=== PATIENT | female | born 1935 | race Caucasian/White ===

== ENCOUNTER 2021-11-10 18:51 | Inpatient (IN) ==
[2021-11-10] MEDS ORDERED: SODIUM CHLORIDE 0.9% 1000ML 500 ML IV ONE (19:01)
--- NOTE | 2021-11-10 19:08 | Emergency Department Note ---
History of Present Illness General Chief complaint: Fall Time Seen by Provider: 11/10/21 18:58 Source: patient, family (Daughter who is at the bedside) and EMS Mode of arrival: EMS Limitations: no limitations History of Present Illness This patient is a 86-year-old female with history of diabetes and dementia, comes in after falling. She was brought in the ER at 7:00 from [facility]. Family last saw her around noon. She was taken the garbage out she says she tripped she did hit her head. she has some mild neck pain. she was complained of back pain when they moved her earlier but denies any now. No chest pain or shortness of breath or shortness of breath. She has a history of diabetes. She has not had any recent illness. She does people looking in on her during the day but she is at by herself at night. She also fell over the weekend and has some history of some parkinsonian type symptoms as well Home Medications Medication Instructions Recorded Confirmed Type glipizide 5 mg tablet 5 mg PO DAILY 06/01/19 11/10/21 History acetaminophen 500 mg tablet 500 - 1,000 mg PO Q8H PRN 11/10/21 11/10/21 History (Tylenol Extra Strength) amlodipine 2.5 mg tablet 2.5 mg PO DAILY 11/10/21 11/10/21 History cranberry 500 mg capsule 500 mg PO BID 11/10/21 11/10/21 History cyanocobalamin (vitamin B-12) 1,000 mcg SUBLINGUAL DIRECTED 11/10/21 11/10/21 History 1,000 mcg sublingual tablet donepezil 10 mg tablet 10 mg PO HS 11/10/21 11/10/21 History enalapril maleate 20 mg tablet 20 mg PO DAILY 11/10/21 11/10/21 History memantine 10 mg tablet 10 mg PO BID 11/10/21 11/10/21 History metformin 1,000 mg tablet 500 mg PO BID 11/10/21 11/10/21 History Allergies Allergy/AdvReac Type Severity Reaction Status Date / Time Penicillins Allergy Intermediate Hives Verified 11/10/21 19:18 Sulfa (Sulfonamide Allergy Intermediate Hives Verified 11/10/21 19:18 Antibiotics) oxycodone AdvReac Intermediate HALLUCINATI Verified 11/10/21 19:18 ONS Past Med/Surg History Medical History (Updated 11/12/21 @ 12:02 by Neville Schaefer MD) Diabetes Memory loss Surgical History H/O abdominal hysterectomy History of cholecystectomy Family History Other Diabetes Social History Smoking Status: Never smoker Hx Alcohol Use: No Hx Substance Use: No Preferred Language: Iraqi Communication Ability: Effective 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 Beliefs That Will Affect Care: None marital status: / Current Living Situation: Alone Current Living Situation Comment: caregiver comes to home Feels Safe at Home: Yes Safety Concerns: Feels Safe At This Time Assistive Devices: Walker Review of Systems A total of 10 systems reviewed and were otherwise negative Physical Exam Vital Signs Vital Signs - 24 hr 11/10/21 19:01 11/10/21 19:15 11/10/21 19:30 Temperature 37.3 C Temperature Source Rectal Pulse Rate 84 82 81 Pulse Rate from SpO2 Sensor Respiratory Rate 18 24 21 Respiratory Effort / Characteristics Non-Labored Blood Pressure 167/81 H Blood Pressure Mean 109 Blood Pressure Position Lying Pulse Oximetry 96 98 96 Oxygen Delivery Method Room Air Room Air Sepsis Recent Fever Within 48 Hours No Sepsis New/Unexplained Change in Mental Status No Sepsis Action Taken by Nursing No Action Required 11/10/21 19:31 11/10/21 19:45 11/10/21 19:54 Temperature Temperature Source Pulse Rate Pulse Rate from SpO2 Sensor 83 Respiratory Rate 20 Respiratory Effort / Characteristics Non-Labored Blood Pressure 175/60 H Blood Pressure Mean 98 Blood Pressure Position Pulse Oximetry 96 97 Oxygen Delivery Method Sepsis Recent Fever Within 48 Hours Sepsis New/Unexplained Change in Mental Status Sepsis Action Taken by Nursing 11/10/21 20:00 11/10/21 20:01 11/10/21 20:10 Temperature Temperature Source Pulse Rate Pulse Rate from SpO2 Sensor 80 Respiratory Rate 22 23 Respiratory Effort / Characteristics Non-Labored Blood Pressure 168/73 H Blood Pressure Mean 104 Blood Pressure Position Pulse Oximetry 96 Oxygen Delivery Method Room Air Sepsis Recent Fever Within 48 Hours Sepsis New/Unexplained Change in Mental Status Sepsis Action Taken by Nursing 11/10/21 20:15 Temperature Temperature Source Pulse Rate 85 Pulse Rate from SpO2 Sensor 85 Respiratory Rate 18 Respiratory Effort / Characteristics Blood Pressure Blood Pressure Mean Blood Pressure Position Pulse Oximetry 96 Oxygen Delivery Method Sepsis Recent Fever Within 48 Hours Sepsis New/Unexplained Change in Mental Status Sepsis Action Taken by Nursing General: Well developed well nourished female who answers questions appropriately and is alert and oriented x3 and appears in no acute distress, breathing comfortably on room air. Normal speech HEENT: Normal cephalic atraumatic exception of some swelling on the posterior aspect on the right. pupils are equal round and reactive to light. Extraocular movements are intact. Oropharynx is pink with moist mucous membranes. No swelling of the mouth lips or tongue. Neck: Supple with a midline trachea. No meningeal signs or stiffness, no JVD or bruits. No Stridor. Chest: Clear to auscultation bilaterally. No wheezes or rhonchi. No increased work of breathing. Heart: Regular rate and rhythm without murmurs or gallops. Abdomen: Soft nontender, nondistended without rebound guarding or rigidity. Extremities: No cyanosis clubbing or edema. No calf tenderness or assymetry Spine/Back. Non tender to palpation. No CVA tenderness Skin: Good turgor without rashes. Neurologic exam: Cranial nerves two through 12 are intact. Motor and sensation are intact and symmetrical throughout. Course Administered Medications Acetaminophen (Acetaminophen 325 Mg Tab) 650 mg PO Q4H PRN PRN Reason: pain/fever Stop: 12/11/21 02:23 Last Admin: 11/11/21 23:10 Dose: 650 mg Documented by: [id number] Amlodipine Besylate (Amlodipine Besylate 5 Mg Tab) 2.5 mg PO DAILY [facility] Stop: 12/11/21 08:59 Last Admin: 11/12/21 08:57 Dose: 2.5 mg Documented by: [id number] Admin: 11/11/21 08:22 Dose: 2.5 mg Documented by: [id number] Donepezil HCl (Donepezil Hcl 10 Mg Tab) 10 mg PO HS [facility] Stop: 12/11/21 20:59 Last Admin: 11/11/21 22:11 Dose: 10 mg Documented by: [id number] Enalapril Maleate (Enalapril Maleate 10 Mg Tab) 20 mg PO DAILY [facility] Stop: 12/11/21 08:59 Last Admin: 11/12/21 08:57 Dose: 20 mg Documented by: [id number] Admin: 11/11/21 08:23 Dose: 20 mg Documented by: [id number] Heparin Sodium (Porcine) (Heparin Sod 5,000 Unit/0.5 Ml Vial) 5,000 units SQ Q12 [place] Stop: 12/11/21 08:59 Last Admin: 11/12/21 08:57 Dose: 5,000 units Documented by: [id number] Admin: 11/11/21 22:12 Dose: 5,000 units Documented by: [id number] Admin: 11/11/21 08:21 Dose: 5,000 units Documented by: [id number] Ceftriaxone Sodium 1,000 mg/ (Dextrose) 60 mls @ 100 mls/hr IV Q24H [facility]; Protocol Stop: 11/21/21 02:59 Last Infusion: 11/12/21 06:27 Dose: 0 mls/hr Documented by: [id number] Admin: 11/12/21 05:38 Dose: 100 mls/hr Documented by: [id number] Infusion: 11/11/21 04:08 Dose: 0 mls/hr Documented by: [id number] Admin: 11/11/21 03:32 Dose: 100 mls/hr Documented by: [id number] Insulin Aspart (Insulin Aspart Per Unit) 0 units SC ACHS [place] Stop: 12/11/21 07:29 Last Admin: 11/12/21 09:04 Dose: 6 units Documented by: [id number] Cosigned by: [id number] Admin: 11/11/21 23:09 Dose: 2 units Documented by: [id number] Cosigned by: [id number] Admin: 11/11/21 16:52 Dose: Not Given Documented by: [id number] Cosigned by: [id number] Admin: 11/11/21 14:18 Dose: 4 units Documented by: [id number] Cosigned by: [id number] Admin: 11/11/21 12:52 Dose: 2 units Documented by: [id number] Cosigned by: [id number] Admin: 11/11/21 09:18 Dose: 3 units Documented by: [id number] Cosigned by: [id number] Memantine (Memantine Hcl 10 Mg Tab) 10 mg PO BID [facility] Stop: 12/11/21 08:59 Last Admin: 11/12/21 08:57 Dose: 10 mg Documented by: [id number] Admin: 11/11/21 22:11 Dose: 10 mg Documented by: [id number] Admin: 11/11/21 08:22 Dose: 10 mg Documented by: [id number] Tramadol HCl (Tramadol Hcl 50 Mg Tablet) 25 mg PO TID PRN PRN Reason: Pain Stop: 12/11/21 02:23 Last Admin: 11/12/21 03:03 Dose: 25 mg Documented by: [id number] Discontinued Medications Sodium Chloride (Nss 1000ml) 500 mls @ 999 mls/hr IV .Q31M ONE Stop: 11/10/21 19:31 Last Infusion: 11/10/21 20:01 Dose: 0 mls/hr Documented by: [id number] Admin: 11/10/21 19:25 Dose: 999 mls/hr Documented by: [id number] Sodium Chloride (1/2 Nss) 1,000 mls @ 80 mls/hr IV .[id number] [place] Stop: 11/11/21 14:53 Last Infusion: 11/11/21 16:19 Dose: 0 mls/hr Documented by: [id number] Admin: 11/11/21 03:32 Dose: 80 mls/hr Documented by: [id number] Ioversol (Optiray 320 100ml) 93 ml IV ONCE ONE Stop: 11/10/21 20:43 Last Admin: 11/10/21 20:42 Dose: 93 ml Documented by: [id number] Potassium Chloride (Potassium Chloride Crtab 20 Meq Tabcr) 40 meq PO NOW ONE Stop: 11/11/21 10:21 Last Admin: 11/11/21 12:03 Dose: 40 meq Documented by: [id number] Medical Decision Making Differential Diagnosis Trauma, head injury, cervical spine injury, back injury, diabetic complication, sepsis, electrolyte or metabolic abnormality, Medical Records Attestation: I reviewed the patient's medical records. Home Medications Current Medication List: was personally reviewed by me Laboratory Data Attestation: I reviewed the patient's lab results. Result diagrams: 11/12/21 07:14 11/12/21 07:14 Lab Results 11/10/21 11/10/21 11/10/21 Range/Units 19:13 19:13 19:13 WBC 13.97 H (4.8-10.8) K/uL RBC 4.33 (4.2-5.4) M/uL Hgb 13.6 (12.0-16.0) g/dL Hct 40.7 (37-47) % MCV 94.0 (80-100) fL MCH 31.4 (25-34) pg MCHC 33.4 (32-36) g/dL RDW Std Deviation 45.2 (36.4-46.3) fL RDW Coeff of Sonal 13.1 (11.5-14.5) % Plt Count 260 (130-400) K/uL MPV 9.3 (7.4-10.4) fL Immature Gran % (Auto) 0.1 % Neut % (Auto) 78.8 % Lymph % (Auto) 10.4 % [place] % (Auto) 9.7 % Eos % (Auto) 0.6 % Baso % (Auto) 0.4 % Neut # (Auto) 11.00 H (1.4-6.5) K/uL Lymph # (Auto) 1.45 (1.2-3.4) K/uL [place] # (Auto) 1.36 H (0.11-0.59) K/uL Eos # (Auto) 0.09 (0-0.5) K/uL Baso # (Auto) 0.05 (0-0.2) K/uL Immature Gran # (Auto) 0.02 (0.00-0.02) K/uL PT 10.3 (9.0-12.0) Seconds INR 1.0 (0.9-1.1) APTT 26.9 (21.0-31.0) Seconds PTT Ratio 1.0 Sodium (136-145) mmol/L Potassium (3.5-5.1) mmol/L Chloride (98-107) mmol/L Carbon Dioxide (21-32) mmol/L Anion Gap (3-11) BUN (6-23) mg/dl Creatinine (0.6-1.2) mg/dl Est Cr Clr Drug Dosing ml/min Est GFR ( Amer) ml/min Est GFR (Non-Af Amer) ml/min BUN/Creatinine Ratio (10-20) Glucose (70-99(Fasting)) mg/dl POC Glucose (70-99) mg/dl Lactate (0.4-2.0) mmol/L Calcium (8.5-10.1) mg/dl Magnesium (1.7-2.4) mg/dl Total Bilirubin (0.2-1.0) mg/dl AST (13-39) U/L ALT (7-52) U/L Alkaline Phosphatase (34-104) U/L Total Creatine Kinase (26-192) U/L Troponin I High Sens 7.9 (0-14) pg/ml Total Protein (6.0-8.3) gm/dl Albumin (3.4-5.0) gm/dl Globulin (2.5-4.0) gm/dl Albumin/Globulin Ratio (0.9-2) Urine Color Urine Appearance (Clear) Urine pH (4.5-7.5) Ur Specific [place] (1.000-1.030) Urine Protein (Negative) Urine Glucose (UA) (Negative) Urine Ketones (Negative) Urine Blood (Negative) Urine Nitrite (Negative) Urine Bilirubin (Negative) Urine Urobilinogen (Negative) Ur Leukocyte Esterase (Negative) Urine WBC (Auto) (0-5) /hpf Urine RBC (Auto) (0-4) /hpf U Hyaline Cast (Auto) (0-5) /lpf U Epithel Cells (Auto) (0-5) /lpf Urine Bacteria (Auto) (Negative) SARS-CoV-2, RNA, NAAT (NEGATIVE) 11/10/21 11/10/21 11/10/21 Range/Units 19:13 19:15 19:59 WBC (4.8-10.8) K/uL RBC (4.2-5.4) M/uL Hgb (12.0-16.0) g/dL Hct (37-47) % MCV (80-100) fL MCH (25-34) pg MCHC (32-36) g/dL RDW Std Deviation (36.4-46.3) fL RDW Coeff of Sonal (11.5-14.5) % Plt Count (130-400) K/uL MPV (7.4-10.4) fL Immature Gran % (Auto) % Neut % (Auto) % Lymph % (Auto) % [place] % (Auto) % Eos % (Auto) % Baso % (Auto) % Neut # (Auto) (1.4-6.5) K/uL Lymph # (Auto) (1.2-3.4) K/uL [place] # (Auto) (0.11-0.59) K/uL Eos # (Auto) (0-0.5) K/uL Baso # (Auto) (0-0.2) K/uL Immature Gran # (Auto) (0.00-0.02) K/uL PT (9.0-12.0) Seconds INR (0.9-1.1) APTT (21.0-31.0) Seconds PTT Ratio Sodium 141 (136-145) mmol/L Potassium 3.7 (3.5-5.1) mmol/L Chloride 105 (98-107) mmol/L Carbon Dioxide 28 (21-32) mmol/L Anion Gap 8 (3-11) BUN 15 (6-23) mg/dl Creatinine 0.54 L (0.6-1.2) mg/dl Est Cr Clr Drug Dosing 60.2 ml/min Est GFR ( Amer) 99.7 ml/min Est GFR (Non-Af Amer) 86.0 ml/min BUN/Creatinine Ratio 27.8 H (10-20) Glucose 98 (70-99(Fasting)) mg/dl POC Glucose 96 (70-99) mg/dl Lactate 0.7 (0.4-2.0) mmol/L Calcium 9.3 (8.5-10.1) mg/dl Magnesium 1.8 (1.7-2.4) mg/dl Total Bilirubin 0.8 (0.2-1.0) mg/dl AST 19 (13-39) U/L ALT 21 (7-52) U/L Alkaline Phosphatase 50 (34-104) U/L Total Creatine Kinase 123 (26-192) U/L Troponin I High Sens (0-14) pg/ml Total Protein 6.9 (6.0-8.3) gm/dl Albumin 4.1 (3.4-5.0) gm/dl Globulin 2.8 (2.5-4.0) gm/dl Albumin/Globulin Ratio 1.5 (0.9-2) Urine Color Urine Appearance (Clear) Urine pH (4.5-7.5) Ur Specific [place] (1.000-1.030) Urine Protein (Negative) Urine Glucose (UA) (Negative) Urine Ketones (Negative) Urine Blood (Negative) Urine Nitrite (Negative) Urine Bilirubin (Negative) Urine Urobilinogen (Negative) Ur Leukocyte Esterase (Negative) Urine WBC (Auto) (0-5) /hpf Urine RBC (Auto) (0-4) /hpf U Hyaline Cast (Auto) (0-5) /lpf U Epithel Cells (Auto) (0-5) /lpf Urine Bacteria (Auto) (Negative) SARS-CoV-2, RNA, NAAT (NEGATIVE) 11/10/21 11/10/21 Range/Units 23:10 Unknown WBC (4.8-10.8) K/uL RBC (4.2-5.4) M/uL Hgb (12.0-16.0) g/dL Hct (37-47) % MCV (80-100) fL MCH (25-34) pg MCHC (32-36) g/dL RDW Std Deviation (36.4-46.3) fL RDW Coeff of Sonal (11.5-14.5) % Plt Count (130-400) K/uL MPV (7.4-10.4) fL Immature Gran % (Auto) % Neut % (Auto) % Lymph % (Auto) % [place] % (Auto) % Eos % (Auto) % Baso % (Auto) % Neut # (Auto) (1.4-6.5) K/uL Lymph # (Auto) (1.2-3.4) K/uL [place] # (Auto) (0.11-0.59) K/uL Eos # (Auto) (0-0.5) K/uL Baso # (Auto) (0-0.2) K/uL Immature Gran # (Auto) (0.00-0.02) K/uL PT (9.0-12.0) Seconds INR (0.9-1.1) APTT (21.0-31.0) Seconds PTT Ratio Sodium (136-145) mmol/L Potassium (3.5-5.1) mmol/L Chloride (98-107) mmol/L Carbon Dioxide (21-32) mmol/L Anion Gap (3-11) BUN (6-23) mg/dl Creatinine (0.6-1.2) mg/dl Est Cr Clr Drug Dosing ml/min Est GFR ( Amer) ml/min Est GFR (Non-Af Amer) ml/min BUN/Creatinine Ratio (10-20) Glucose (70-99(Fasting)) mg/dl POC Glucose (70-99) mg/dl Lactate (0.4-2.0) mmol/L Calcium (8.5-10.1) mg/dl Magnesium (1.7-2.4) mg/dl Total Bilirubin (0.2-1.0) mg/dl AST (13-39) U/L ALT (7-52) U/L Alkaline Phosphatase (34-104) U/L Total Creatine Kinase (26-192) U/L Troponin I High Sens (0-14) pg/ml Total Protein (6.0-8.3) gm/dl Albumin (3.4-5.0) gm/dl Globulin (2.5-4.0) gm/dl Albumin/Globulin Ratio (0.9-2) Urine Color Yellow Urine Appearance Clear (Clear) Urine pH 5.5 (4.5-7.5) Ur Specific [place] 1.027 (1.000-1.030) Urine Protein Negative (Negative) Urine Glucose (UA) Negative (Negative) Urine Ketones 3+ H (Negative) Urine Blood 2+ H (Negative) Urine Nitrite Positive A (Negative) Urine Bilirubin Negative (Negative) Urine Urobilinogen Negative (Negative) Ur Leukocyte Esterase Negative (Negative) Urine WBC (Auto) 1-5 (0-5) /hpf Urine RBC (Auto) 0-4 (0-4) /hpf U Hyaline Cast (Auto) 1-5 (0-5) /lpf U Epithel Cells (Auto) 20-30 H (0-5) /lpf Urine Bacteria (Auto) 4+ H (Negative) SARS-CoV-2, RNA, NAAT NEGATIVE (NEGATIVE) Imaging Data Attestation: I personally reviewed and interpreted this imaging study as follows: My Impression: Chest x-ray-no acute infiltrate, failure, pneumothorax seen Radiologist's Impression: Chest X-Ray 11/10/21 19:01 XR chest 1V portable CLINICAL HISTORY: Sepsis. COMPARISON STUDY: No previous studies for comparison. FINDINGS: Lung volumes are normal. Lungs are clear. There is no pneumothorax or pleural effusion. Cardiac size is normal. Mediastinal contours are normal. There is no evidence for pulmonary edema. IMPRESSION: No acute cardiopulmonary findings. ACT 112: Negative or not required by law. Electronically signed by: Raleigh Peck M.D. 11/10/2021 7:35 PM Abdomen/Pelvis CT 11/10/21 19:02 CT OF THE ABDOMEN AND PELVIS WITH CONTRAST CLINICAL HISTORY: fall, low back pain COMPARISON STUDY: None. TECHNIQUE: Following IV administration of 93 mL of Optiray, axial images of the abdomen and pelvis were obtained from the lung bases to the proximal femurs. Images were reviewed in the axial, sagittal, and coronal planes. IV contrast was administered without complication. Automated exposure control was utilized for the study. A dose lowering technique was utilized adhering to the principles of ALARA. FINDINGS: Trace left pleural effusion is noted. There is a small hiatal hernia. No hemoperitoneum or pneumoperitoneum is present. There is no evidence for traumatic injury to the liver, spleen, adrenal glands, kidneys or pancreas. There is no biliary ductal dilatation status post cholecystectomy. Moderate amount of stool is noted within the colon. No evidence for a bowel obstruction. Sigmoid diverticulosis is noted without evidence for acute diverticulitis. There is no free fluid. No acute pelvic or hip fractures identified. Bladder wall thickening is probably chronic. Note is made of a mild compression fracture of the superior endplate of L1. Trace paravertebral hemorrhage is present. There are also fractures of the left transverse processes of L3 and L4 which are better depicted on the lumbar spine CT. Please see that report for further description. IMPRESSION: 1. No evidence for traumatic injury to the solid abdominal viscera. 2. Acute mild L1 compression fracture. Acute fractures of the left transverse processes of L3 and L4. These findings are better depicted on the lumbar spine CT which will be reported separately. ACT 112: Negative or not required by law. Electronically signed by: Raleigh Peck M.D. 11/10/2021 9:[address] 11/10/21 19:02 CT OF THE CERVICAL SPINE WITHOUT CONTRAST CLINICAL HISTORY: fall COMPARISON STUDY: No previous studies for comparison. TECHNIQUE: Helical axial images of the cervical spine were obtained without IV contrast. Sagittal and coronal reconstructions were viewed. Automated exposure control was utilized for the study. A dose lowering technique was utilized adhering to the principles of ALARA. FINDINGS: Alignment of the cervical spine is anatomic. Vertebral body heights are maintained. No acute cervical spine fracture or subluxation is present. The re is no prevertebral edema. Facet joints are intact. Severe multilevel facet arthrosis is present. There is moderate multilevel degenerative disc disease. A 1.7 cm hypodense right lobe thyroid nodule is incidentally noted. Right apical airspace opacity is better depicted on the chest CT which will be reported separately. IMPRESSION: No acute cervical spine fracture or subluxation. ACT 112: Negative or not required by law. Electronically signed by: Raleigh Peck M.D. 11/10/2021 9:[address] 11/10/21 19:02 CT OF THE CHEST WITH IV CONTRAST CLINICAL HISTORY: fall COMPARISON STUDY: Chest radiograph performed earlier today. TECHNIQUE: Following IV administration of 93 mL of Optiray, helical axial images of the chest were obtained. Sagittal and coronal reconstructions were viewed as well as maximal intensity projections on an independent 3-D workstation. Automated exposure control was utilized for the study. A dose lowering technique was utilized adhering to the principles of ALARA. FINDINGS: There is no evidence for traumatic injury to the thoracic aorta. No pericardial effusion is present. Moderate coronary artery calcification is present. There is no pneumothorax. Trace left pleural effusion is noted. Subpleural lower lobe opacities reflect atelectasis. Note is made of a 4.1 cm subpleural right apical opacity shown on axial image 28 of 281. There is associated interlobular septal thickening. There is also apparent increased intercostal density. Underlying ribs appear intact. Abdomen and pelvis CT will be reported separately. A small hiatal hernia is present. No acute thoracic spine fracture is present. Acute L1 fracture is better depicted on the lumbar spine CT which will be reported separately. Several old right anterior rib fractures are present. No acute rib fractures are identified. IMPRESSION: 1. No evidence for traumatic injury to the thoracic aorta. 2. No pneumothorax. Trace left pleural effusion. No acute rib fractures identified. 3. 4.1 cm subpleural right apical opacity with associated interlobular septal thickening and apparent increased intracostal density. This finding is nonspecific. This could be infectious. A neoplastic or traumatic etiology would be difficult to completely exclude. A follow-up chest CT in 2 months to ensure resolution is recommended. ACT 112: Negative or not required by law. Electronically signed by: Raleigh Peck M.D. 11/10/2021 9:[address] 11/10/21 19:02 CT OF THE HEAD WITHOUT CONTRAST CLINICAL HISTORY: fall COMPARISON STUDY: No previous studies for comparison. CT DOSE: 1762.90 mGy.cm TECHNIQUE: Helical axial images of the head were obtained without IV contrast. Automated exposure control was utilized for the study. A dose lowering technique was utilized adhering to the principles of ALARA. FINDINGS: No acute intracranial hemorrhage, midline shift or mass effect is present. The ventricular system is unremarkable. The basal cisterns are patent. No extra-axial collections are present. There are no findings to suggest acute dural sinus thrombosis or acute territorial infarct. No significant calvarial abnormalities are present. Visualized portions of the sinuses and mastoid air cells are clear. A left posterior scalp contusion is present. IMPRESSION: 1. No acute intracranial findings. 2. Left posterior scalp contusion. No calvarial fracture. ACT 112: Negative or not required by law. Electronically signed by: Raleigh Peck M.D. 11/10/2021 8:[address] 11/10/21 19:02 CT lumbar spine w con CLINICAL HISTORY: fall, low back pain COMPARISON STUDY: No previous studies for comparison. TECHNIQUE: Axial images of the lumbar spine were obtained following intravenous injection of 93 cc of Optiray 320 IV. Sagittal and coronal reconstructions were viewed. Automated exposure control was utilized for the study. A dose lowering technique was utilized adhering to the principles of ALARA. FINDINGS: Please note that the CT of the abdomen and pelvis will be reported separately. There is an acute mild L1 compression fracture. There is minimal paravertebral hemorrhage. There is approximate 20% loss of vertebral body height. Fracture extends to the anterior cortex. Posterior cortex is intact. No extension into the posterior elements is noted. No retropulsion. There is also an acute mildly distracted fracture of the left transverse process of L3 and an acute nondisplaced fracture of the left transverse process of L4. There is severe multiple level facet arthrosis. Moderate to severe multilevel degenerative disc disease is present. Central canal and neural foramen are suboptimally assessed by CT. IMPRESSION: 1. Acute mild L1 compression fracture. Minimal loss of vertebral body height. No retropulsion. No extension into the posterior elements. 2. Acute minimally distracted fracture of the left transverse process of L3. Acute nondisplaced fracture of the left transverse process of L4. ACT 112: Negative or not required by law. Electronically signed by: Raleigh Peck M.D. 11/10/2021 9:24 PM ECG Data Attestation: I personally reviewed and interpreted this ECG as follows: Indication: + weakness Rate (beats per minute): 83 Rhythm: + normal sinus and + other (Poor baseline/artifact) ECG Intervals/blocks: + Normal QRS, + Normal QT and + Normal MD ECG [place]: + Normal ECG ST segments: + Normal ST segments ECG Findings: no PACs or no PVCs Comparison ECG Date: no prior available MDM Narrative This patient comes in as described above. She was placed on a security monitor in room C10. I did see her upon arrival and talk to the ambulance crew as well as her daughter. She fell on the porch and was down for couple hours at most. She complained of neck and back pain she also hit her head she is on no blood thinners. We are examined her she did feel warm although her oral temperature was not elevated we did get a rectal temp and I ordered a sepsis work-up as well as 1 to make sure she no infection that was causing her to fall. Also [facility] trauma scans as she had hit her head also had neck pain and back pain. She was COVID tested as well. CAT scan of her head was and neck were unremarkable. She has a nonspecific finding in her right apex which could be infectious or neoplastic. She has no traumatic injuries to the chest. She does have L1 compression fracture and transverse process of L3 and 4. This is causing her some pain with movement. Her EKG has poor baseline but no ischemic changes. Her initial troponin is not elevated she does not think she passed out. She has no significant electrolyte or metabolic abnormalities. Mildly elevated white count but is afebrile. Her urinalysis does suggest a UTI however she has greater than 30 epithelial cells so it may be a contaminated specimen. Denies urinary symptoms. I did discuss the case with Dr. Wise who from [facility] and he will admit her for these measures Continuous cardiac monitoring: Orders placed in the EMR for continuous security monitor. Upon my Impression & Plan Weakness, Diabetes, Memory loss, Compression fracture of L1 lumbar vertebra, Fall, Lab test negative for COVID-19 virus Discharge Plan Visit Data Chief Complaint: Fall ED Provider: Neville Schaefer Discharge Problem: Weakness, Diabetes, Memory loss, Compression fracture of L1 lumbar vertebra, Fall, Lab test negative for COVID-19 virus Patient Disposition: Admitted As Inpatient Discharge Instructions Interventions: ED Discharge Assessment Last Done: 11/11/21 22:25 Discharge Problem: Diabetes Qualifiers: Diabetes mellitus type: type 2 Diabetes mellitus group home insulin use: without termite inspector use Diabetes mellitus complication status: without complication Qualified Code(s): E11.9 - Type 2 diabetes mellitus without complications Compression fracture of L1 lumbar vertebra Qualifiers: Encounter type: initial encounter Qualified Code(s): S32.010A - Wedge compression fracture of first lumbar vertebra, initial encounter for closed fracture Fall Qualifiers: Encounter type: initial encounter Qualified Code(s): W19.XXXA - Unspecified fall, initial encounter
[2021-11-10 19:31] LABS: Basophils # (auto) 0.05 K/uL (0-0.2); Basophils % (auto) 0.4 %; Eosinophils # (auto) 0.09 K/uL (0-0.5); Eosinophils % (auto) 0.6 %; Hematocrit (blood only) 40.7 % (37-47); Hemoglobin 13.6 g/dL (12.0-16.0); Immature Granulocytes # (auto) 0.02 K/uL (0.00-0.02); Immature Granulocytes % (auto) 0.1 %; Lymphocytes # (auto) 1.45 K/uL (1.2-3.4); Lymphocytes % (auto) 10.4 %; Mean Corpuscular Hemoglobin 31.4 pg (25-34); Mean Corpuscular Hgb Conc 33.4 g/dL (32-36); Mean Platelet Volume 9.3 fL (7.4-10.4); Monocytes # (auto) 1.36 K/uL (0.11-0.59); Monocytes % (auto) 9.7 %; Neutrophils % (auto) 78.8 %; Platelet Count 260 K/uL (130-400); RDW Coefficient of Variation 13.1 % (11.5-14.5); RDW Standard Deviation 45.2 fL (36.4-46.3); Red Blood Count 4.33 M/uL (4.2-5.4); White Blood Count 13.97 K/uL (4.8-10.8)
--- NOTE | 2021-11-10 19:36 | XRay Report ---
XR chest 1V portable CLINICAL HISTORY: Sepsis. COMPARISON STUDY: No previous studies for comparison. FINDINGS: Lung volumes are normal. Lungs are clear. There is no pneumothorax or pleural effusion. Car diac size is normal. Mediastinal contours are normal. There is no evidence for pulmonary edema. IMPRESSION: No acute cardiopulmonary findings. ACT 112: Negative or not required by law. Electronically signed by: Raleigh Peck M.D. 11/10/2021 7:35 PM
[2021-11-10 19:45] LABS: Partial Thromboplastin Time 26.9 Seconds (21.0-31.0); Prothrombin Time 10.3 Seconds (9.0-12.0)
[2021-11-10 20:12] LABS: Albumin Globulin Ratio 1.5 (0.9-2); Albumin Level 4.1 gm/dl (3.4-5.0); BUN Creatinine Ratio 27.8 (10-20); Bilirubin,Total 0.8 mg/dl (0.2-1.0); Calcium 9.3 mg/dl (8.5-10.1); Creatinine Clr Calc Pharmacy 60.2 ml/min; Est GFR (African American) 99.7 ml/min; Globulin 2.8 gm/dl (2.5-4.0); Magnesium 1.8 mg/dl (1.7-2.4); Potassium 3.7 mmol/L (3.5-5.1); Total Protein 6.9 gm/dl (6.0-8.3)
[2021-11-10 20:40] LABS: Appearance Urine Clear (Clear); Bacteria Urine Automated 4+ (Negative); Bilirubin Urine Negative (Negative); Blood Urine 2+ (Negative); Color Urine Yellow; Epithelial Cell Urine Auto 20-30 /lpf (0-5); Glucose Urine UA Negative (Negative); Ketones Urine 3+ (Negative); Leukocyte Esterase Urine Negative (Negative); Nitrite Urine Positive (Negative); Protein Urine Negative (Negative); RBC Urine Automated 0-4 /hpf (0-4); Specific Gravity Urine 1.027 (1.000-1.030); Urobilinogen Urine Negative (Negative); pH Urine 5.5 (4.5-7.5)
[2021-11-10] MEDS ORDERED: OPTIRAY 320 100ml IV ONE (20:42)
--- NOTE | 2021-11-10 21:00 | CT Scan Report ---
CT OF THE HEAD WITHOUT CONTRAST CLINICAL HISTORY: fall COMPARISON STUDY: No previous studies for comparison. CT DOSE: 1762.90 mGy.cm TECHNIQUE: Helical axial images of the head were obtained without IV contrast. Automated exposure con trol was utilized for the study. A dose lowering technique was utilized adhering to the principles o f ALARA. FINDINGS: No acute intracranial hemorrhage, midline shift or mass effect is present. The ventricular system is unremarkable. The basal cisterns are patent. No extra-axial collections are present. There are no findings to suggest acute dural sinus thrombosis or acute territorial infarct. No significant calvarial abnormalities are present. Visualized portions of the sinuses and mastoid air cells are rajni ar. A left posterior scalp contusion is present. IMPRESSION: 1. No acute intracranial findings. 2. Left posterior scalp contusion. No calvarial fracture. ACT 112: Negative or not required by law. Electronically signed by: Raleigh Peck M.D. 11/10/2021 8:57 PM
--- NOTE | 2021-11-10 21:04 | CT Scan Report ---
CT OF THE CERVICAL SPINE WITHOUT CONTRAST CLINICAL HISTORY: fall COMPARISON STUDY: No previous studies for comparison. TECHNIQUE: Helical axial images of the cervical spine were obtained without IV contrast. Sagittal a nd coronal reconstructions were viewed. Automated exposure control was utilized for the study. A do se lowering technique was utilized adhering to the principles of ALARA. FINDINGS: Alignment of the cervical spine is anatomic. Vertebral body heights are maintained. No acut e cervical spine fracture or subluxation is present. There is no prevertebral edema. Facet joints are intact. Severe multilevel facet arthrosis is present. There is moderate multilevel degenerative dis c disease. A 1.7 cm hypodense right lobe thyroid nodule is incidentally noted. Right apical airspace opacity is better depicted on the chest CT which will be reported separately. IMPRESSION: No acute cervical spine fracture or subluxation. ACT 112: Negative or not required by law. Electronically signed by: Raleigh Peck M.D. 11/10/2021 9:02 PM
--- NOTE | 2021-11-10 21:14 | CT Scan Report ---
CT OF THE CHEST WITH IV CONTRAST CLINICAL HISTORY: fall COMPARISON STUDY: Chest radiograph performed earlier today. TECHNIQUE: Following IV administration of 93 mL of Optiray, helical axial images of the chest were o btained. Sagittal and coronal reconstructions were viewed as well as maximal intensity projections o n an independent 3-D workstation. Automated exposure control was utilized for the study. A dose low ering technique was utilized adhering to the principles of ALARA. FINDINGS: There is no evidence for traumatic injury to the thoracic aorta. No pericardial effusion i s present. Moderate coronary artery calcification is present. There is no pneumothorax. Trace left pl eural effusion is noted. Subpleural lower lobe opacities reflect atelectasis. Note is made of a 4.1 c m subpleural right apical opacity shown on axial image 28 of 281. There is associated interlobular se ptal thickening. There is also apparent increased intercostal density. Underlying ribs appear intact. Abdomen and pelvis CT will be reported separately. A small hiatal hernia is present. No acute thorac ic spine fracture is present. Acute L1 fracture is better depicted on the lumbar spine CT which will be reported separately. Several old right anterior rib fractures are present. No acute rib fractures are identified. IMPRESSION: 1. No evidence for traumatic injury to the thoracic aorta. 2. No pneumothorax. Trace left pleural effusion. No acute rib fractures identified. 3. 4.1 cm subpleural right apical opacity with associated interlobular septal thickening and apparent increased intracostal density. This finding is nonspecific. This could be infectious. A neoplastic o r traumatic etiology would be difficult to completely exclude. A follow-up chest CT in 2 months to en sure resolution is recommended. ACT 112: Negative or not required by law. Electronically signed by: Raleigh Peck M.D. 11/10/2021 9:11 PM
--- NOTE | 2021-11-10 21:21 | CT Scan Report ---
CT OF THE ABDOMEN AND PELVIS WITH CONTRAST CLINICAL HISTORY: fall, low back pain COMPARISON STUDY: None. TECHNIQUE: Following IV administration of 93 mL of Optiray, axial images of the abdomen and pelvis we re obtained from the lung bases to the proximal femurs. Images were reviewed in the axial, sagittal, and coronal planes. IV contrast was administered without complication. Automated exposure control wa s utilized for the study. A dose lowering technique was utilized adhering to the principles of ALARA . FINDINGS: Trace left pleural effusion is noted. There is a small hiatal hernia. No hemoperitoneum or pneumoperitoneum is present. There is no evidence for traumatic injury to the liver, spleen, adrenal glands, kidneys or pancreas. There is no biliary ductal dilatation status post cholecystectomy. Moder ate amount of stool is noted within the colon. No evidence for a bowel obstruction. Sigmoid diverticu losis is noted without evidence for acute diverticulitis. There is no free fluid. No acute pelvic or hip fractures identified. Bladder wall thickening is probably chronic. Note is made of a mild louise edyta fracture of the superior endplate of L1. Trace paravertebral hemorrhage is present. There are al so fractures of the left transverse processes of L3 and L4 which are better depicted on the lumbar sp ine CT. Please see that report for further description. IMPRESSION: 1. No evidence for traumatic injury to the solid abdominal viscera. 2. Acute mild L1 compression fracture. Acute fractures of the left transverse processes of L3 and L4. These findings are better depicted on the lumbar spine CT which will be reported separately. ACT 112: Negative or not required by law. Electronically signed by: Raleigh Peck M.D. 11/10/2021 9:19 PM
--- NOTE | 2021-11-10 21:26 | CT Scan Report ---
CT lumbar spine w con CLINICAL HISTORY: fall, low back pain COMPARISON STUDY: No previous studies for comparison. TECHNIQUE: Axial images of the lumbar spine were obtained following intravenous injection of 93 cc of Optiray 320 IV. Sagittal and coronal reconstructions were viewed. Automated exposure control was uti lized for the study. A dose lowering technique was utilized adhering to the principles of ALARA. FINDINGS: Please note that the CT of the abdomen and pelvis will be reported separately. There is an acute mild L1 compression fracture. There is minimal paravertebral hemorrhage. There is approximate 2 0% loss of vertebral body height. Fracture extends to the anterior cortex. Posterior cortex is intact . No extension into the posterior elements is noted. No retropulsion. There is also an acute mildly d istracted fracture of the left transverse process of L3 and an acute nondisplaced fracture of the lef t transverse process of L4. There is severe multiple level facet arthrosis. Moderate to severe multil evel degenerative disc disease is present. Central canal and neural foramen are suboptimally assessed by CT. IMPRESSION: 1. Acute mild L1 compression fracture. Minimal loss of vertebral body height. No retropulsion. No ext ension into the posterior elements. 2. Acute minimally distracted fracture of the left transverse process of L3. Acute nondisplaced fract ure of the left transverse process of L4. ACT 112: Negative or not required by law. Electronically signed by: Raleigh Peck M.D. 11/10/2021 9:24 PM
[2021-11-11] MEDS ORDERED: ONDANSETRON INJ 2 MG/ML 2 ML VIAL IV PRN (02:24)
[2021-11-11] MEDS ORDERED: traMADol HCL 50 MG TABLET PO PRN (02:24)
[2021-11-11] MEDS ORDERED: POLYETHYLENE (MIRALAX) 17 GM PACK PO PRN (02:24)
[2021-11-11] MEDS ORDERED: SODIUM CHLORIDE 0.45 % 1,000 ML IV SCH (02:24)
[2021-11-11] MEDS ORDERED: ACETAMINOPHEN 325 MG TAB PO PRN (02:24)
[2021-11-11] MEDS: cefTRIAXone SODIUM 1,000 MG in DEXTROSE 5% 50 ML IV SCH (03:32)
--- NOTE | 2021-11-11 07:23 | History and Physical Report ---
DATE OF ADMISSION: 11/10/2021. CHIEF COMPLAINT: Frequent falls. HISTORY OF PRESENT ILLNESS: This is an 86-year-old female with past medical history significant for hyperlipidemia, type 2 diabetes, hypertension, Parkinson disease, dementia due to Parkinson's disease, who lives alone at home, presents with falls. Daughter is in the room. As per daughter, she has a caregiver who comes from 8:00 to 11:00 a.m. and her other sister and brother live close by and they come on alternate days to check on her in the evening and also help with dinner. She fell last Tuesday, but she was okay. Today, the patient's son was coming to pick her up to take her to dinner and when he came around 6:00 in the evening, she was found on the porch fallen down on the porch. Daughter reports it is not a hard surface. The patient thinks that she fell at around 3:00 and that is the reason she was brought in here. The patient has dementia, but she can recognize family members. Recent memory is okay as per family. The patient has some headache. No blurred visions. Always has some runny nose. No sore throat, no cough. Appetite is okay. She eats regular food. Ambulates without support. Denies any chest pain. Has some back pain and hip pains, no shortness of breath. No nausea, no abdominal pain. Normal bowel and bladder movements. No swelling in the legs. Obeys simple commands. ALLERGIES: PENICILLIN, SULFA, OXYCODONE. PAST MEDICAL HISTORY: As mentioned above. PAST SURGICAL HISTORY: Cholecystectomy, colonoscopy, ligation of the oviducts, removal of ovaries for teratoma, repair of the bladder defect, repair of vaginal prolapse, vaginal hysterectomy. MEDICATIONS: The patient is on Tylenol Extra Strength p.r.n., amlodipine 2.5 mg p.o. daily, vitamin B12 1000 mg sublingual as directed, donepezil 10 mg p.o. at bedtime, enalapril 20 mg p.o. daily, glipizide 5 mg p.o. daily, memantine 10 mg p.o. b.i.d., metformin 500 mg p.o. b.i.d. FAMILY HISTORY: Significant for mother had diabetes, heart disorder; brother has heart disorder; sister has hypertension, stroke, lung disorder; father has psoriasis. SOCIAL HISTORY: . No smoking, no alcohol, no drug use. REVIEW OF SYSTEMS: As per HPI. Rest of the review of systems is negative. PHYSICAL EXAMINATION: GENERAL: The patient is old and frail, not in acute distress. VITAL SIGNS: Temperature 37.3, pulse 80, respiratory rate 16, blood pressure 123/77, oxygen 94% on room air. HEENT: Pupils equal, round and reactive to light. Oral mucosa moist. NECK: No JVD, no neck masses. CARDIOVASCULAR: S1 and S2 heard. Regular rate and rhythm. No murmur, no gallop. RESPIRATORY SYSTEM: Normal AP diameter. No accessory muscle use. No wheezing, no crackles. ABDOMEN: Soft. Bowel sounds are present, nontender, no distention. CENTRAL NERVOUS SYSTEM: Alert and awake. Obeys simple commands, answers simple questions. Moves extremities. No facial droop. Speech is clear. EXTREMITIES: No edema, no erythema. LABORATORY DATA: WBC 13.9, hemoglobin 13.6, hematocrit 40.7, platelets 260. PT 10.3, INR 1, APTT 26.9. Sodium 141, potassium 3.7, chloride 105, bicarb 28, BUN 15, creatinine 0.5, serum glucose 98. Lactate 0.7, calcium 9.3, magnesium 1.8, total bilirubin 0.8, AST 19, ALT 21, alkaline phosphatase 50, total creatine kinase 123. Troponin 1 high sensitivity 7.9. Urinalysis positive for nitrite, +2 blood, +3 ketones, bacteria +4. SARS-CoV-2 rapid test negative. IMAGING DATA: Lumbar spine CT with contrast, acute mild L1 compression fracture with minimal loss of vertebral body height. No retropulsion. Acute minimally distracted fracture of the left transverse process of L3 and also left transverse process of L4. Acute nondisplaced fracture of the left transverse process of L4. Head CT, no acute findings. Left posterior scalp contusion. Chest CT, no evidence of traumatic injury to thoracic aorta. No pneumothorax. No acute rib fractures identified. Trace left pleural effusion. A 4.1 cm subpleural right apical opacity with associated interlobular septal thickening and apparently increased intercostal density, this finding is nonspecific. This could be infectious. A neoplastic traumatic etiology could be difficult to completely exclude. A followup CT chest in two months to ensure resolution. Cervical spine CT, no acute findings. CT of abdomen and pelvis with contrast, no acute findings. Chest x-ray, no acute findings. EKG: Normal sinus rhythm at a rate of 83, nonspecific ST abnormalities. ASSESSMENT AND PLAN: This is an 86-year-old female who presents with frequent falls. 1. The patient has history of Parkinson's dementia. Ambulates without support at home. Troponin is negative. EKG, no acute findings. Urinalysis positive for urinary tract infection. CT head was okay. Possibly secondary to urinary tract infection. PT/OT. Monitor in the hospital. Pain control. 2. Compression fractures of L1 and also transverse process of the L3 and L4. Pain control, PT/OT. Ortho consult for recommendations. 3. Urinary tract infection: On Rocephin. Follow the cultures. Gentle fluids. 4. History of dementia: Continue her home medication of memantine and donepezil. 5. History of diabetes: Hold glipizide and metformin. Placed on sliding scale. Follow the blood sugars, follow HbA1c levels. 6. Hypertension: Continue amlodipine and enalapril. 7. Parkinsonism and dementia: Monitor for delirium. 8. Deep venous thrombosis prophylaxis: Heparin subcutaneously. DISPOSITION: Closely monitor in the medical floor. PT/OT prior to discharge. Social service to help with discharge planning. Level 1 full code. Job ID: [id number] [facility]
[2021-11-11 07:26] LABS: Basophils # (auto) 0.05 K/uL (0-0.2); Basophils % (auto) 0.5 %; Eosinophils # (auto) 0.18 K/uL (0-0.5); Eosinophils % (auto) 1.8 %; Hematocrit (blood only) 38.3 % (37-47); Hemoglobin 12.9 g/dL (12.0-16.0); Immature Granulocytes # (auto) 0.02 K/uL (0.00-0.02); Immature Granulocytes % (auto) 0.2 %; Lymphocytes # (auto) 1.43 K/uL (1.2-3.4); Lymphocytes % (auto) 14.5 %; Mean Corpuscular Hemoglobin 31.5 pg (25-34); Mean Corpuscular Hgb Conc 33.7 g/dL (32-36); Mean Corpuscular Volume 93.4 fL (80-100); Mean Platelet Volume 9.4 fL (7.4-10.4); Monocytes # (auto) 1.08 K/uL (0.11-0.59); Platelet Count 250 K/uL (130-400); RDW Coefficient of Variation 13.1 % (11.5-14.5); RDW Standard Deviation 44.9 fL (36.4-46.3); White Blood Count 9.86 K/uL (4.8-10.8)
[2021-11-11 08:13] LABS: BUN Creatinine Ratio 22.6 (10-20); Calcium 8.5 mg/dl (8.5-10.1); Creatinine Clr Calc Pharmacy 61.4 ml/min; Est GFR (African American) 100.3 ml/min; Est GFR (Non-African American) 86.6 ml/min; Magnesium 1.8 mg/dl (1.7-2.4); Potassium 3.4 mmol/L (3.5-5.1)
[2021-11-11] MEDS: HEPARIN SOD 5,000 UNIT/0.5 ML VIAL SQ SCH ×2 (08:21→22:12)
[2021-11-11] MEDS: MEMANTINE HCL 10 MG TAB PO SCH ×2 (08:22→22:11)
[2021-11-11] MEDS: amLODIPine BESYLATE 5 MG TAB PO SCH (08:22)
[2021-11-11] MEDS: ENALAPRIL MALEATE 10 MG TAB PO SCH (08:23)
[2021-11-11 08:31] LABS: Estimated Average Glucose 160 mg/dl; Hemoglobin A1C 7.2 % (4.5-5.6)
[2021-11-11] MEDS ORDERED: NON-FORMULARY MEDICATION (Cranberry 500 mg Capsule) PO SCH (09:00)
[2021-11-11] MEDS: INSULIN ASPART PER UNIT SC SCH ×5 (09:18→23:09)
[2021-11-11] MEDS ORDERED: POTASSIUM CHLORIDE CRTAB 20 MEQ TABCR PO ONE (10:20)
--- NOTE | 2021-11-11 13:30 | Consultation ---
Date of Consultation November 11, 2021 Assessment & Plan (1) Compression fracture of L1 lumbar vertebra: Dr. Jessica has reviewed CT scan and history. CAT scan actually shows more of superior anterior chip fracture of L1. The posterior cortex/column appears to be intact. There is significant spondylosis at adjacent to T12-L1 level/autofusion. Will continue with conservative treatment. I have consulted orthotics for a TLSO brace. This is be worn at all times but may be removed for bathing. Ambulate ad eva once brace has been received. No lifting greater than 5 pounds. Due to the patient living alone, patient may benefit from a short rehab stay upon discharge from the hospital. History of Present Illness Reason for Consultation: L1 compression fracture Lumbar transverse process fractures Attending Physician: Gilberto Patel MD History of Present Illness Is a very pleasant 86-year-old female we are asked to see in consultation regarding acute lumbar fractures. Patient has had 2 falls over the past 4 days. Last being last evening on the porch when she was taking out the garbage and tripped and fell. She was unable to get up on her own. She tripped and she hit her head but no loss of consciousness. Typically she has a walker for ambulation. She lives alone but has a caregiver from 8 AM to noon and then family in and out of the house throughout the daytime. Patient has complaints of lower back pain only. No radicular complaints. Denies bowel or bladder changes. Allergies Allergy/AdvReac Type Severity Reaction Status Date / Time Penicillins Allergy Intermediate Hives Verified 11/10/21 19:18 Sulfa (Sulfonamide Allergy Intermediate Hives Verified 11/10/21 19:18 Antibiotics) oxycodone AdvReac Intermediate HALLUCINATI Verified 11/10/21 19:18 ONS Home Medications Medication Instructions Recorded Confirmed Type glipizide 5 mg tablet 5 mg PO DAILY 06/01/19 11/10/21 History acetaminophen 500 mg tablet 500 - 1,000 mg PO Q8H PRN 11/10/21 11/10/21 History (Tylenol Extra Strength) amlodipine 2.5 mg tablet 2.5 mg PO DAILY 11/10/21 11/10/21 History cranberry 500 mg capsule 500 mg PO BID 11/10/21 11/10/21 History cyanocobalamin (vitamin B-12) 1,000 mcg SUBLINGUAL DIRECTED 11/10/21 11/10/21 History 1,000 mcg sublingual tablet donepezil 10 mg tablet 10 mg PO HS 11/10/21 11/10/21 History enalapril maleate 20 mg tablet 20 mg PO DAILY 11/10/21 11/10/21 History memantine 10 mg tablet 10 mg PO BID 11/10/21 11/10/21 History metformin 1,000 mg tablet 500 mg PO BID 11/10/21 11/10/21 History Patient History Medical History (Updated 11/11/21 @ 13:30 by Hailee Rodriguez PA-C) Diabetes Memory loss Surgical History H/O abdominal hysterectomy History of cholecystectomy Family History Other Diabetes Social History Smoking Status: Never smoker Hx Alcohol Use: No Hx Substance Use: No Preferred Language: [place] Communication Ability: Effective Chamber Walker Required: No Beliefs That Will Affect Care: None marital status: / Current Living Situation: Alone Current Living Situation Comment: caregiver comes to home Feels Safe at Home: Yes Safety Concerns: Feels Safe At This Time Assistive Devices: Walker Review of Systems Review of Systems: All systems reviewed & are unremarkable except as noted in HPI & below Physical Exam Physical Exam: She seen in the emergency room in conjunction with her granddaughter Alert and oriented x3 No acute distress Strength is intact bilateral lower extremities Negative logrolling bilateral lower extremity Results & Data ([facility]) Vital Signs (Past 12 Hours) Vital Signs Temp Pulse Resp BP Pulse Ox 11/11/21 09:21 80 20 134/82 96 11/11/21 04:16 36.8 C 78 18 152/76 H 95 [phone] Scan Report Patient:TRACEY TAYLOR Admit Date:11/10/21 MR#:[id number] Address1:[address] [place] [address] Acct ID:[id number] Address2: Date:[address] [facility] Zip:[place] [id number] Age:86 Location:ED Sex:F Room/Bed: Att Phy: Diagnosis:FALL Rhea Phy:Raymond Joe MD Service Date:11/10/21 [facility] Phy: Interpreting Phy:Raleigh Peck MDAdmit Phy: Ordering Phy:Neville Schaefer M.D. cc: ~ CT lumbar spine w con CLINICAL HISTORY: fall, low back pain COMPARISON STUDY: No previous studies for comparison. TECHNIQUE: Axial images of the lumbar spine were obtained following intravenous injection of 93 cc of Optiray 320 IV. Sagittal and coronal reconstructions were viewed. Automated exposure control was utilized for the study. A dose lowering technique was utilized adhering to the principles of ALARA. FINDINGS: Please note that the CT of the abdomen and pelvis will be reported separately. There is an acute mild L1 compression fracture. There is minimal paravertebral hemorrhage. There is approximate 20% loss of vertebral body height. Fracture extends to the anterior cortex. Posterior cortex is intact. No extension into the posterior elements is noted. No retropulsion. There is also an acute mildly distracted fracture of the left transverse process of L3 and an acute nondisplaced fracture of the left transverse process of L4. There is severe multiple level facet arthrosis. Moderate to severe multilevel degenerative disc disease is present. Central canal and neural foramen are suboptimally assessed by CT. IMPRESSION: 1. Acute mild L1 compression fracture. Minimal loss of vertebral body height. No retropulsion. No extension into the posterior elements. 2. Acute minimally distracted fracture of the left transverse process of L3. Acute nondisplaced fracture of the left transverse process of L4. ACT 112: Negative or not required by law. Electronically signed by: Raleigh Peck M.D. 11/10/2021 9:24 PM Dictated:11/10/212118 Transcribed: 11/10/212118
--- NOTE | 2021-11-11 13:45 | CT Scan Report ---
HEAD CT NONCONTRAST CT DOSE: 691.05 mGy.cm HISTORY: Blurred vision, Fall TECHNIQUE: Multiaxial CT images of the head were performed without the use of intravenous contrast. A utomated exposure control was utilized for this study. A dose lowering technique was utilized adheri ng to the principles of ALARA. Comparison: Head CT 11/10/2021. Findings: The paranasal sinuses and mastoid air cells are clear. The calvarium and skull base are int act. The ventricles and sulci are within normal limits. There is no mass, hematoma, midline shift, or acute infarct. Left posterior scalp swelling has improved. Impression: No acute intracranial abnormality. ACT 112: Negative or not required by law. Electronically signed by: Jose A Vasquez M.D. 11/11/2021 1:43 PM
--- NOTE | 2021-11-11 20:25 | Hospitalist Progress Note ---
Date of Service November 11, 2021 Assessment & Plan (1) Compression fracture of L1 lumbar vertebra: Plan: Patient is an 86 yr female who presents with frequent falls. Acute Compression fracture of L1 lumbar vertebra Acute mildly distracted fracture of left transverse process of L3 Acute nondisplaced fracture of the left transverse process of L4 Secondary to Fall --Lumbar CT:Acute mild L1 compression fracture. Minimal loss of vertebral body height. No retropulsion. No extension into the posterior elements. Acute minimally distracted fracture of the left transverse process of L3. Acute nondisplaced fracture of the left transverse process of L4. -- Appreciate orthopedics input Conservative management Orthotics for TLSO brace May need rehab placement No lifting greater than 5 pounds Ambulate ad eva. referral once brace is arranged Needs follow-up with orthopedics upon discharge Abnormal CT chest 4.1 cm subpleural right apical opacity --CT chest:4.1 cm subpleural right apical opacity with associated interlobular septal thickening and apparent increased intracostal density. This finding is nonspecific. This could be infectious. A neoplastic or traumatic etiology would be difficult to completely exclude. A follow-up chest CT in 2 months to ensure resolution is recommended. --Needs follow-up with pulmonology as outpatient --Will need repeat CT in 2 months Reported blurred vision CT Head:No acute intracranial abnormality. Consider further evaluation if needed UTI Urine culture pending On Rocephin empirically H/O Parkinson's dementia. On memantine, donepezil. DM II Hold PO meds Continue Insulin Hypertension: Continue amlodipine and enalapril DVT Px: Heparin SQ CODE STATUS Full code Disposition May need Rehab Admission and Anticipated Discharge Date Admission Date: November 11, 2021 Subjective Patient is seen and examined at bedside States having lower back pain with movement Also reports blurred vision Discussed with patient's family at bedside Offers no other complaints Review of Systems Review of Systems: All systems reviewed & are unremarkable except as noted in Subjective Physical Exam Physical Exam: Physical Exam: Vitals signs as noted above General Appearance:Moderately built and nourished, Elderly, no apparent distress Head: normocephalic, Atraumatic Eyes: normal inspection, EOMI Neck: supple, Trachea midline Respiratory/Chest: Normal breath sounds, CTA, No accessory muscle use Cardiovascular: S1, S2, No murmur Abdomen/GI:Soft, Non tender, Bowel sounds present Extremities/Musculoskeletal:normal inspection, no edema Neurologic/Psych:AAOX3, grossly no focal neurological deficits Skin: normal color, warm Results & Data Results & Data ([facility]) Vital Signs (Past 12 Hours) Vital Signs Pulse Resp BP Pulse Ox 11/11/21 18:00 69 18 119/66 95 11/11/21 17:00 64 18 97 11/11/21 10:17 84 17 172/78 H 96 11/11/21 09:21 80 20 134/82 96 Laboratory Results Short CBC 11/11/21 Range/Units 07:09 WBC 9.86 (4.8-10.8) K/uL Hgb 12.9 (12.0-16.0) g/dL Hct 38.3 (37-47) % Plt Count 250 (130-400) K/uL BMP 11/11/21 07:09 Sodium 138 Potassium 3.4 L Chloride 105 Carbon Dioxide 25 BUN 12 Creatinine 0.53 L Glucose 135 H Calcium 8.5 Urine 11/10/21 Range/Units Unknown Urine Color Yellow Urine Appearance Clear (Clear) Urine pH 5.5 (4.5-7.5) Ur Specific [place] 1.027 (1.000-1.030) Urine Protein Negative (Negative) Urine Glucose (UA) Negative (Negative)
[2021-11-11] MEDS ORDERED: DONEPEZIL HCL 10 MG TAB PO SCH (21:00)
[2021-11-12] MEDS: cefTRIAXone SODIUM 1,000 MG in DEXTROSE 5% 50 ML IV SCH (05:38)
[2021-11-12 07:32] LABS: Hematocrit (blood only) 41.5 % (37-47); Hemoglobin 13.9 g/dL (12.0-16.0); Mean Corpuscular Hemoglobin 30.8 pg (25-34); Mean Corpuscular Hgb Conc 33.5 g/dL (32-36); Mean Platelet Volume 9.4 fL (7.4-10.4); Platelet Count 281 K/uL (130-400); RDW Coefficient of Variation 13.1 % (11.5-14.5); RDW Standard Deviation 44.2 fL (36.4-46.3); Red Blood Count 4.51 M/uL (4.2-5.4); White Blood Count 10.27 K/uL (4.8-10.8)
[2021-11-12 07:48] LABS: BUN Creatinine Ratio 24.1 (10-20); Calcium 8.7 mg/dl (8.5-10.1); Creatinine Clr Calc Pharmacy 60.2 ml/min; Est GFR (African American) 99.7 ml/min; Potassium 3.7 mmol/L (3.5-5.1)
[2021-11-12] MEDS: ENALAPRIL MALEATE 10 MG TAB PO SCH (08:57)
[2021-11-12] MEDS: MEMANTINE HCL 10 MG TAB PO SCH (08:57)
[2021-11-12] MEDS: amLODIPine BESYLATE 5 MG TAB PO SCH (08:57)
[2021-11-12] MEDS: HEPARIN SOD 5,000 UNIT/0.5 ML VIAL SQ SCH (08:57)
[2021-11-12] MEDS: INSULIN ASPART PER UNIT SC SCH ×2 (09:04→13:35)
--- NOTE | 2021-11-12 12:41 | Hospitalist Progress Note ---
Date of Service November 12, 2021 Assessment & Plan (1) Compression fracture of L1 lumbar vertebra: Plan: Patient is an 86 yr female who presents with frequent falls. Acute Compression fracture of L1 lumbar vertebra Acute mildly distracted fracture of left transverse process of L3 Acute nondisplaced fracture of the left transverse process of L4 Secondary to Fall --Lumbar CT:Acute mild L1 compression fracture. Minimal loss of vertebral body height. No retropulsion. No extension into the posterior elements. Acute minimally distracted fracture of the left transverse process of L3. Acute nondisplaced fracture of the left transverse process of L4. -- Appreciate orthopedics input Conservative management May need rehab placement No lifting greater than 5 pounds Ambulate ad eva. once brace is arranged TLSO Brace in place Needs follow-up with orthopedics upon discharge Abnormal CT chest 4.1 cm subpleural right apical opacity --CT chest:4.1 cm subpleural right apical opacity with associated interlobular septal thickening and apparent increased intracostal density. This finding is nonspecific. This could be infectious. A neoplastic or traumatic etiology would be difficult to completely exclude. A follow-up chest CT in 2 months to ensure resolution is recommended. --Needs follow-up with pulmonology as outpatient --Will need repeat CT in 2 months Patient's family is made aware. Understands patient's condition and agrees to follow-up with pulmonology as outpatient with repeat CT scan. Reported blurred vision CT Head:No acute intracranial abnormality. Repeat CT head:No acute intracranial abnormality. Resolved UTI Urine culture: E.Coli Continue Rocephin Day #2 H/O Parkinson's dementia. On memantine, donepezil. DM II Hold PO meds Continue Insulin Hypertension: Continue amlodipine and enalapril DVT Px: Heparin SQ CODE STATUS Full code Disposition Rehab when arranged Admission and Anticipated Discharge Date Admission Date: November 11, 2021 Subjective Patient is seen and examined at bedside States feeling tired Reports that blurred vision is resolved Back pain is controlled Denies any chest pain, shortness of breath, dizziness, nausea, abd pain Review of Systems Review of Systems: All systems reviewed & are unremarkable except as noted in Subjective Physical Exam Physical Exam: Physical Exam: Vitals signs as noted above General Appearance:Moderately built and nourished, Elderly, no apparent distress Head: normocephalic, Atraumatic Eyes: normal inspection, EOMI Neck: supple, Trachea midline Respiratory/Chest: Normal breath sounds, CTA, No accessory muscle use Cardiovascular: S1, S2, No murmur Abdomen/GI:Soft, Non tender, Bowel sounds present, +Brace Extremities/Musculoskeletal:normal inspection, no edema Neurologic/Psych:AAOX3, grossly no focal neurological deficits, +Resting tremor Skin: normal color, warm Results & Data Results & Data ([facility]) Vital Signs (Past 12 Hours) Vital Signs Temp Pulse Resp BP Pulse Ox 11/12/21 07:17 36.7 C 83 14 177/74 H 93 11/12/21 01:45 169/76 H Laboratory Results Short CBC 11/12/21 Range/Units 07:14 WBC 10.27 (4.8-10.8) K/uL Hgb 13.9 (12.0-16.0) g/dL Hct 41.5 (37-47) % Plt Count 281 (130-400) K/uL BMP 11/12/21 07:14 Sodium 135 L Potassium 3.7 Chloride 102 Carbon Dioxide 22 BUN 13 Creatinine 0.54 L Glucose 200 H Calcium 8.7 (1) Compression fracture of L1 lumbar vertebra Encounter type: initial encounter Qualified Code(s): S32.010A - Wedge compression fracture of first lumbar vertebra, initial encounter for closed fracture
--- NOTE | 2021-11-12 13:00 | Discharge Summary ---
Date of Service November 12, 2021 Admission HPI Per Admitting Provider CHIEF COMPLAINT: Frequent falls. HISTORY OF PRESENT ILLNESS: This is an 86-year-old female with past medical history significant for hyperlipidemia, type 2 diabetes, hypertension, Parkinson disease, dementia due to Parkinson's disease, who lives alone at home, presents with falls. Daughter is in the room. As per daughter, she has a caregiver who comes from 8:00 to 11:00 a.m. and her other sister and brother live close by and they come on alternate days to check on her in the evening and also help with dinner. She fell last Tuesday, but she was okay. Today, the patient's son was coming to pick her up to take her to dinner and when he came around 6:00 in the evening, she was found on the porch fallen down on the porch. Daughter reports it is not a hard surface. The patient thinks that she fell at around 3:00 and that is the reason she was brought in here. The patient has dementia, but she can recognize family members. Recent memory is okay as per family. The patient has some headache. No blurred visions. Always has some runny nose. No sore throat, no cough. Appetite is okay. She eats regular food. Ambulates without support. Denies any chest pain. Has some back pain and hip pains, no shortness of breath. No nausea, no abdominal pain. Normal bowel and bladder movements. No swelling in the legs. Obeys simple commands. Admission Exam Per Admitting Provider PHYSICAL EXAMINATION: GENERAL: The patient is old and frail, not in acute distress. VITAL SIGNS: Temperature 37.3, pulse 80, respiratory rate 16, blood pressure 123/77, oxygen 94% on room air. HEENT: Pupils equal, round and reactive to light. Oral mucosa moist. NECK: No JVD, no neck masses. CARDIOVASCULAR: S1 and S2 heard. Regular rate and rhythm. No murmur, no gallop. RESPIRATORY SYSTEM: Normal AP diameter. No accessory muscle use. No wheezing, no crackles. ABDOMEN: Soft. Bowel sounds are present, nontender, no distention. CENTRAL NERVOUS SYSTEM: Alert and awake. Obeys simple commands, answers simple questions. Moves extremities. No facial droop. Speech is clear. EXTREMITIES: No edema, no erythema. Principal Diagnosis Acute Compression fracture of L1 lumbar vertebra Acute mildly distracted fracture of left transverse process of L3 Acute nondisplaced fracture of the left transverse process of L4 Mechanical Fall Urinary tract infection Right apical opacity on CT chest Discharge Data Allergies Allergy/AdvReac Type Severity Reaction Status Date / Time Penicillins Allergy Intermediate Hives Verified 11/10/21 19:18 Sulfa (Sulfonamide Allergy Intermediate Hives Verified 11/10/21 19:18 Antibiotics) oxycodone AdvReac Intermediate HALLUCINATI Verified 11/10/21 19:18 ONS Consultations 11/10/21 21:54 ED Decision to Admit Stat 11/11/21 08:00 Consult Orthopedic Surgery Routine Ordered Studies 11/10/21 19:02 CT abd pelvis IV con only Stat CT cervical spine wo con Stat CT chest diagnostic w con Stat CT head/brain wo con Stat CT lumbar spine w con Stat 11/11/21 13:08 CT head/brain wo con Urgent Hospital Course (1) Compression fracture of L1 lumbar vertebra: Patient is an 86 yr female who presents with frequent falls. Acute Compression fracture of L1 lumbar vertebra Acute mildly distracted fracture of left transverse process of L3 Acute nondisplaced fracture of the left transverse process of L4 Secondary to Fall --Lumbar CT:Acute mild L1 compression fracture. Minimal loss of vertebral body height. No retropulsion. No extension into the posterior elements. Acute minimally distracted fracture of the left transverse process of L3. Acute nondisplaced fracture of the left transverse process of L4. -- Appreciate orthopedics input Conservative management May need rehab placement No lifting greater than 5 pounds Ambulate ad eva. once brace is arranged TLSO Brace in place Needs follow-up with orthopedics upon discharge Abnormal CT chest 4.1 cm subpleural right apical opacity --CT chest:4.1 cm subpleural right apical opacity with associated interlobular septal thickening and apparent increased intracostal density. This finding is nonspecific. This could be infectious. A neoplastic or traumatic etiology would be difficult to completely exclude. A follow-up chest CT in 2 months to ensure resolution is recommended. --Needs follow-up with pulmonology as outpatient --Will need repeat CT in 2 months Patient's family is made aware. Understands patient's condition and agrees to follow-up with pulmonology as outpatient with repeat CT scan. Reported blurred vision CT Head:No acute intracranial abnormality. Repeat CT head:No acute intracranial abnormality. Resolved UTI Urine culture: E.Coli Continue Rocephin Day #2 H/O Parkinson's dementia. On memantine, donepezil. DM II Hold PO meds Continue Insulin Hypertension: Continue amlodipine and enalapril DVT Px: Heparin SQ CODE STATUS Full code Disposition Rehab when arranged Total Time Total Time Spent Total Time Spent (In Minutes): 50 minutes Discharge Plan Discharge Items Patient Disposition: Transfer Inpatient Rehab Fac Reason For Visit: FALL Discharge Diagnosis: Acute Compression fracture of L1 lumbar vertebra Acute mildly distracted fracture of left transverse process of L3 Acute nondisplaced fracture of the left transverse process of L4 Mechanical Fall Urinary tract infection Right apical opacity on CT chest Activity: Per Instructions section Lifting: No more than 5 pounds Exercise/Sports: Gradually increase as tolerated Non-emergency contact: Primary Care Provider, Surgeon and [employer] Call non-emergency contact if: you have any medication questions, your symptoms worsen, your pain is concerning for you and you have a fever Follow-up/Referrals: Raymond Joe MD [Primary Care Provider] - Diet: Carb Consistent or DM2 and Heart Healthy Diet Texture: Easy to Chew Addtl Attending Provider Instructions: Follow-up with your primary care physician Dr. Raymond Joe in 1 week upon discharge from rehab facility Follow-up with your orthopedic surgeon Dr. Jessica in 3-4 weeks as advised Follow-up with your alteration inspector for further evaluation of right apical opacity which was incidentally seen on CT scan of your chest. ----Complete the antibiotic course cefdinir 300 mg twice a day for 3 more days for urinary tract infection. --- Final blood cultures are pending at the time of discharge. Follow-up with your physician for results. ----Use TLSO brace to be worn at all times but may be removed for bathing ----Ambulate ad Eva while using brace ---- No lifting greater than 5 pounds Seek immediate medical attention if your symptoms reoccur or worsen Please take all medications as instructed on discharge list below. Please call if you have any questions or problems. You can reach a [facility] hospitalist on duty at [facility] 24 hours a day by calling [phone] Pending Studies at Discharge: Yes Studies:: Blood Cultures Stand-Alone Forms: My [facility] Skilled Items Patient informed of condition?: Yes DNR: No Discharge Level of Care: Acute rehab Communicable Disease: No Discharge Prognosis: Stable Lines: None Urinary Catheter: No Medications and DC Order Prescriptions: New cefdinir 300 mg capsule 300 mg PO BID Qty: 6 RF: 0 tramadol 50 mg Tablet 25 mg PO TID PRNQty: 0 RF: 0 Continued glipizide 5 mg tablet 5 mg PO DAILY RF: 0 enalapril maleate 20 mg tablet 20 mg PO DAILY RF: 0 donepezil 10 mg tablet 10 mg PO HS RF: 0 amlodipine 2.5 mg tablet 2.5 mg PO DAILY RF: 0 acetaminophen [Tylenol Extra Strength] 500 mg Tablet 500 - 1,000 mg PO Q8H PRN (Reason: Pain) RF: 0 metformin 1,000 mg tablet 500 mg PO BID RF: 0 cyanocobalamin (vitamin B-12) [Vitamin B-12] 1,000 mcg Tablet, Sublingual 1,000 mcg SUBLINGUAL DIRECTED RF: 0 cranberry 500 mg Capsule 500 mg PO BID RF: 0 memantine 10 mg tablet 10 mg PO BID RF: 0 Discharge Orders: Discharge Order (Routine); Ordered 11/12/21 Ordered By: Gilberto Nguyen/Other Patient Handouts: Hypoglycemia (Low Blood Sugar), Managing Type 2 Diabetes Admission Data Admit Date/Time: 11/11/21 00:19 Attending Provider: Gilberto Patel Admit Provider: Micky Downs Primary Care Provider: Raymond Joe Other Providers: Micky Downs ; Riki Jessica ; [facility]
--- NOTE | 2021-11-12 13:11 | Electrocardiogram Report ---
Test Reason : Blood Pressure : / mmHG Vent. Rate : 083 BPM Atrial Rate : 083 BPM P-R Int : 160 ms QRS Dur : 078 ms QT Int : 386 ms P-R-T Axes : 068 -21 060 degrees QTc Int : 453 ms Poor data quality, interpretation may be adversely affected Probable Sinus rhythm Left atrial enlargement Nonspecific T wave abnormality Lateral leads Abnormal ECG No previous ECGs available Confirmed by Wallace Rodriguez ([id number]) on 11/12/2021 1:11:22 PM Referred By: REFERRED SELF Confirmed By:Wallace Rodriguez
== END 2021-11-12 15:26 | DRG 92 ==
LOC: ED 18:51 → EDINP 11-11 00:19 → SUATTDRO 11-11 00:19 → 3N 11-11 22:25